=== PATIENT | male | born 1950 | race African-American/Black ===

== ENCOUNTER 2019-12-13 01:10 | Emergency (ER) | payer MEDICAID ==
[~2019-12-13] VITALS: Ht 165.1 cm; Wt 73.6 kg
[2019-12-13] MEDS ORDERED: ACETAMINOPHEN 325MG TABLET PO ONE (01:45)
[2019-12-13 04:37] VITALS: BP 148/92
== END 2019-12-13 04:46 | disposition home or self-care (01) ==
LOC: ER 01:10
DX: S00.212A Abrasion of left eyelid and periocular area, initial encounter (principal); S00.211A Abrasion of right eyelid and periocular area, initial encounter; S63.92XA Sprain of unspecified part of left wrist and hand, initial encounter; W08.XXXA Fall from other furniture, initial encounter; Y93.89 Activity, other specified; R03.0 Elevated blood-pressure reading, without diagnosis of hypertension; Y92.038 Other place in apartment as the place of occurrence of the external cause
CPT/HCPCS: 70140; 73130; 99284

== ENCOUNTER 2024-03-20 13:10 | Emergency (ER) | payer MEDICAID ==
[~2024-03-20] VITALS: Ht 162.6 cm; Wt 75.0 kg
[2024-03-20 13:28] VITALS: O2SAT 99
[2024-03-20 15:06] LABS: BASOPHILS % 1.8 % (0.0-2.0); EOSINOPHILS % 0.7 % (0.0-5.0); HEMATOCRIT. 44.7 % (42.0-52.0); HEMOGLOBIN. 14.3 g/dL (14.0-18.0); LYMPHOCYTES % 41.2 % (20.0-50.0); MEAN CORPUSCULAR HEMOGLOBIN 26.8 pg (28.0-32.0); MEAN CORPUSCULAR VOLUME 83.8 fL (80.0-94.0); MONOCYTES % 9.7 % (2.0-8.0); NEUTROPHILS % 46.6 % (40.0-76.0); PLATELET 275 x1000/uL (130-400); RED BLOOD CELL COUNT 5.34 mill/uL (4.7-6.1); RED CELL DISTRIBUTION WIDTH 15.3 % (11.6-14.6); WHITE BLOOD COUNT 3.7 x1000/uL (4.5-11.0)
[2024-03-20 15:15] LABS: CHLORIDE 108 mEq/L (98-107); POTASSIUM 4.2 mEq/L (3.5-5.1); SODIUM 142 mEq/L (136-145)
[2024-03-20 15:16] LABS: CARBON DIOXIDE 28 mEq/L (21-32)
[2024-03-20 15:21] LABS: CREATININE 0.9 mg/dL (0.6-1.3); GLUCOSE 85 mg/dL (70-105); UREA NITROGEN BLOOD 13 mg/dL (9-23)
[2024-03-20 15:28] LABS: TROPONIN I HIGH SENSITIVITY < 4 ng/L (3.0-53)
[2024-03-20 17:02] VITALS: BP 122/69; PULSE 74; RESP 18; TEMP 98.3
== END 2024-03-20 17:05 | disposition home or self-care (01) ==
LOC: ER 13:10
DX: Z00.00 Encounter for general adult medical examination without abnormal findings (principal); I49.9 Cardiac arrhythmia, unspecified
CPT/HCPCS: 36415; 71045; 80048; 84484; 85025; 93005; 99285